=== PATIENT | female | born 1975 | race American Indian/Alaskan Native ===

== ENCOUNTER 2017-03-21 06:15 | Emergency (ER) | payer MEDICAID ==
[2017-03-21] MEDS ORDERED: TYLENOL PO ONE (06:25)
--- NOTE | 2017-03-21 07:46 | Emergency Department Report ---
ED Headache HPI - General Chief Complaint: Headache Stated Complaint: BREATHING PROBLEM Time Seen by Provider: 03/21/17 07:45 Source: patient Exam Limitations: no limitations - History of Present Illness Initial Comments: Patient here complaining of coughing 2 weeks. She says she saw her primary care doctor yesterday and he put her on antibiotic which is amoxicillin, inhaler and Motrin. She says she is still coughing and wants a breathing treatment. Denies any fever or chills. Denies any shortness of breath. Denies any nausea or vomiting. She is complaining of headache from coughing that is 10 out of 10. She said her headache comes and goes. Patient states she has a history of COPD. She denies any chest pain and reports that she's having nasal congestion. Timing/Duration: 1-3 hours, waxing and waning Quality: achy, pressure Head Injury Location: frontal Recent Head Trauma: occasional headaches (she says she gets occasional headache occasional headache on and off when she gets a cold. Denies any visual difficulties or dizziness. Eyes any neck pain or stiffness) Modifying Factors: improves with: rest Associated Symptoms: nasal congestion, nasal drainage. denies: confusion, fatigue, facial pain, fever/chills, flushing, loss of consciousness, nausea/ vomiting, numbness in legs/feet, rash, seizures, sinus infection, stiff neck, vision changes, weakness Allergies/Adverse Reactions: Allergies No Known Allergies Allergy (Verified 03/21/17 06:21) Home Medications: Ambulatory Orders Cetirizine HCl [ZyrTEC] 10 mg PO QDAY #14 capsule 03/21/17 Fluticasone [Flonase] 1 spray NS QDAY #1 bottle 03/21/17 guaiFENesin/CODEINE [Robitussin AC] 5 ml PO TID PRN #75 oral.liqd 03/21/17 traMADol [Ultram] 50 mg PO Q6HR PRN #12 tablet 03/21/17 ED Review of Systems ROS: Stated complaint: BREATHING PROBLEM Other details as noted in HPI Comment: All other systems reviewed and negative Constitutional: denies: chills, fever Eyes: denies: eye pain, eye discharge, vision change ENT: congestion. denies: ear pain, throat pain, dental pain, epistaxis Respiratory: cough. denies: shortness of breath, SOB with exertion, SOB at rest , stridor, wheezing Cardiovascular: denies: chest pain, palpitations, syncope, paroxysmal nocturnal dyspnea Gastrointestinal: denies: abdominal pain, nausea, vomiting Musculoskeletal: denies: back pain, arthralgia Skin: denies: rash Neurological: headache. denies: weakness, numbness, paresthesias, confusion, abnormal gait, vertigo ED Past Medical Hx - Past Medical History Previous Medical History?: Yes Hx COPD: Yes - Surgical History Past Surgical History?: No - Family History Family history: hypertension - Social History Smoking Status: Former Smoker Substance Use Type: None - Medications Home Medications: Home Medications Medication Instructions Recorded Confirmed Last Taken Type Cetirizine HCl [ZyrTEC] 10 mg PO QDAY #14 capsule 03/21/17 Unknown Rx Fluticasone [Flonase] 1 spray NS QDAY #1 bottle 03/21/17 Unknown Rx guaiFENesin/CODEINE [Robitussin AC] 5 ml PO TID PRN #75 oral.liqd 03/21/17 Unknown Rx traMADol [Ultram] 50 mg PO Q6HR PRN #12 tablet 03/21/17 Unknown Rx ED Physical Exam - General Limitations: No Limitations General appearance: alert, in no apparent distress - Head Head exam: Present: atraumatic, normocephalic, normal inspection - Expanded Head Exam Expanded Head exam: Absent: laceration, abrasion, contusion, hematoma, racoon eyes, talamantes's sign, general tenderness, tenderness of temporal artery, CSF rhinorrhea - Eye Eye exam: Present: normal appearance, PERRL, EOMI. Absent: scleral icterus, conjunctival injection, nystagmus, periorbital swelling, periorbital tenderness Pupils: Present: normal accommodation - ENT ENT exam: Present: normal orophraynx, mucous membranes moist, normal external ear exam, other (bilateral nasal mucosa congested with erythema and clear drainage. Maxillary and frontal sinuses nontender to palpate). Absent: TM's normal bilaterally (bilateral TMs congested without erythema) - Neck Neck exam: Present: normal inspection, full ROM. Absent: tenderness, meningismus, lymphadenopathy - Respiratory Respiratory exam: Present: normal lung sounds bilaterally, decreased breath sounds (chronic COPD). Absent: respiratory distress, wheezes, rales, rhonchi, stridor, chest wall tenderness, accessory muscle use, prolonged expiratory - Cardiovascular Cardiovascular Exam: Present: regular rate, normal rhythm, normal heart sounds - Extremities Exam Extremities exam: Present: normal inspection, full ROM, normal capillary refill. Absent: tenderness, pedal edema, joint swelling, calf tenderness - Back Exam Back exam: Present: normal inspection, full ROM. Absent: tenderness, CVA tenderness (R), CVA tenderness (L), muscle spasm, paraspinal tenderness, vertebral tenderness, rash noted - Neurological Exam Neurological exam: Present: alert, oriented X3, normal gait, reflexes normal. Absent: motor sensory deficit - Expanded Neurological Exam Expanded Neurological exam: Absent: innattentive, memory loss-remote event, memory loss- recent event, ataxia, receptive aphasia, expressive aphasia, total aphasia, tremor, protecting the airway Patient oriented to: Present: person, place, time Speech: Present: fluid speech Cranial nerves: EOM's Intact: Normal, Gag Reflex: Normal, Tongue Deviation: Normal, Nystagmus: Normal, Facial Sensation: Normal Cerebellar function: Romberg: Normal Upper motor neuron: Pronator Drift: Normal, Sensory Extinction: Normal Sensory exam: Upper Extremity Light Touch: Normal, Upper Extremity Temperature: Normal, UE 2 Point Discrimination: Normal, Lower Extremity Light Touch: Normal, Lower Extremity Temperature: Normal, LE 2 Point Discrimination: Normal Motor strength exam: RUE: 5, LUE: 5, RLE: 5, LLE: 5 DTR: bicep (R): 2+, bicep (L): 2+, tricep (R): 2+, tricep (L): 2+, knee (R): 2+ , knee (L): 2+, ankle (R): 2+, ankle (L): 2+ Best Eye Response ([place]): (4) open spontaneously Best Motor Response ([place]): (6) obeys commands Best Verbal Response ([place]): (5) oriented [place] Total: 15 - Psychiatric Psychiatric exam: Present: normal affect, normal mood - Skin Skin exam: Present: warm, dry, intact, normal color. Absent: rash ED Course Vital Signs 03/21/17 03/21/17 03/21/17 06:21 08:10 08:21 Temperature 98.8 F Pulse Rate 93 H Pulse Rate [ 90 92 H Bilateral Upper Lobe] Respiratory 18 Rate Respiratory 18 18 Rate [Bilateral Upper Lobe] Blood Pressure 117/78 O2 Sat by Pulse 100 Oximetry - Reevaluation(s) Reevaluation #1: 03/21/17 10:29 Patient given Tylenol 650 mg in triage and she does not have any headache. Patient was given xopinex/atrovent times one immunization and Deltasone 60 mg in emergency room and she says she felt better. 03/21/17 10:30 ED Medical Decision Making - Radiology Data Radiology results: report reviewed Chest x-ray revealed no acute cardiopulmonary findings. - Medical Decision Making ED course: Patient came to the ER complaining of coughing for 2 weeks and one and a breathing treatment. She also reported headache that started prior to coming to the emergency room. She says she is feeling congested and her headache is 10 out of 10. Psych pressure. She says she took Motrin with minimal relief. Patient was given Tylenol 650 mg in triage which relieved her headache. She was also given Xopenex 1.25 mg and Atrovent 0.5 mg nebulizer treatment. Patient with history of COPD and managed by her primary care doctor. Her primary care doctor gave her amoxicillin, inhaler and Motrin yesterday. I instructed patient that she needs to stop taking the Motrin as a dentist on the ground with her inhaler and I'll start her on Ultram. Patient is stable discharged home with her family with prescription for Ultram and to continue her other medication. Also I gave her prescription for cough medicine is guaifenesin with codeine, Zyrtec and Flonase. Critical care attestation.: If time is entered above; I have spent that time in minutes in the direct care of this critically ill patient, excluding procedure time. ED Disposition Clinical Impression: Cough, Upper respiratory infection, acute Disposition: DISCHARGED TO HOME OR SELFCARE Is pt being admited?: No Does the pt Need Aspirin: No Condition: Stable Instructions: Chronic Obstructive Pulmonary Disease (ED), Acute Cough (ED), Upper Respiratory Infection (ED) Additional Instructions: Please discontinue Motrin and it is contraindicated when taking in inhaler such as albuterol, regular or Ventolin. take Ultram for pain if necessary. Take guaifenesin with codeine 3 times a day for cough but please do not drive or operate heavy machinery while taking this medication as it will cause drowsiness Continue your other medications and which his inhaler and amoxicillin. Start serotactic and Flonase Upper Respiratory tract infection Prescriptions: Cetirizine HCl [ZyrTEC] 10 mg PO QDAY #14 capsule Fluticasone [Flonase] 1 spray NS QDAY #1 bottle guaiFENesin/CODEINE [Robitussin AC] 5 ml PO TID PRN #75 oral.liqd PRN Reason: Cough traMADol [Ultram] 50 mg PO Q6HR PRN #12 tablet PRN Reason: Pain Referrals: FITO MARTI MD [Primary Care Provider] - 03/24/17 Forms: Work/School Release Form(ED)
[2017-03-21] MEDS ORDERED: ATROVENT IH ONE (07:58)
[2017-03-21] MEDS ORDERED: DELTASONE PO ONE (07:58)
[2017-03-21] MEDS ORDERED: XOPENEX IH ONE (08:03)
--- NOTE | 2017-03-21 08:46 | XRay Report ---
ROUTINE CHEST, TWO VIEWS: Cough. PA and lateral views demonstrate the heart and mediastinal contour to be of normal size and shape. The lungs are clear and fully expanded and the soft tissues and bony structures are normal. IMPRESSION: Normal study.
[2017-03-21 10:53] VITALS: BP 105/66
== END 2017-03-21 10:52 | disposition home or self-care (01) ==
LOC: ED 06:15
DX: J06.9 Acute upper respiratory infection, unspecified (principal); J44.9 Chronic obstructive pulmonary disease, unspecified; Z87.891 Personal history of nicotine dependence
CPT/HCPCS: 71020; 94640; 99283; J7512

== ENCOUNTER 2017-07-17 13:39 | Emergency (ER) | payer MEDICAID ==
[2017-07-17 14:13] VITALS: BP 116/71
--- NOTE | 2017-07-17 14:47 | XRay Report ---
ROUTINE CHEST, TWO VIEWS: HISTORY: chest pain. The trachea, heart, mediastinal contour, lung nathan and bony thorax are unremarkable. IMPRESSION: Unremarkable chest x-ray. No change since 03/21/17.
[2017-07-17 15:29] LABS: Basophils % (Auto) 0.8 % (0.0-1.8); Eosinophils % (Auto) 0.5 % (0.0-4.3); Hematocrit 41.3 % (30.3-42.9); Hemoglobin 13.7 gm/dl (10.1-14.3); Mean Corpuscular HGB Conc 33 % (30-34); Mean Corpuscular Hemoglobin 27 pg (28-32); Mean Corpuscular Volume 81 fl (79-97); Platelet Count 285 K/mm3 (140-440); Red Blood Count 5.12 M/mm3 (3.65-5.03); Red Cell Distribution Width 16.9 % (13.2-15.2); White Blood Count 7.7 K/mm3 (4.5-11.0)
[2017-07-17 15:41] LABS: Chloride 96.3 mmol/L (98-107); Sodium 135 mmol/L (137-145)
[2017-07-17 15:42] LABS: Alanine Aminotransferase 9 units/L (7-56); Albumin/Globulin Ratio 1.1 %; Alkaline Phosphatase 50 units/L (35-129); Anion Gap 17 mmol/L; Blood Urea Nitrogen 7 mg/dL (7-17); Calcium 9.1 mg/dL (8.4-10.2); Carbon Dioxide 26 mmol/L (22-30); Glucose 90 mg/dL (65-100); Lipase 23 units/L (13-60); Total Protein 7.6 g/dL (6.3-8.2)
== END 2017-07-17 20:00 | disposition left against medical advice (07) ==
LOC: ED 13:39
DX: R06.00 Dyspnea, unspecified (principal); R07.89 Other chest pain; M54.9 Dorsalgia, unspecified; Z87.891 Personal history of nicotine dependence; Z53.21 Procedure and treatment not carried out due to patient leaving prior to being seen by health care provider
CPT/HCPCS: 36415; 71020; 80053; 83690; 84484; 84703; 85025; 93005; 93010

== ENCOUNTER 2018-05-19 19:37 | Emergency (ER) | payer MEDICAID ==
[2018-05-19 20:36] VITALS: BP 114/70
[2018-05-20] MEDS ORDERED: MOTRIN PO ONE (00:11)
--- NOTE | 2018-05-20 00:15 | Emergency Department Report ---
Upper Extremity - HPI Chief Complaint: Extremity Injury, Upper Stated Complaint: RT HAND PAIN Time Seen by Provider: 05/19/18 23:40 Upper Extremity: Right Hand Occurred When: >5 Days (1 month ago) Mechanism: Hit with Object Severity: moderate Symptoms: Yes Pain with Movement, Yes Limited Range of Movement, Yes Numbness, Yes Swelling, No Deformity, No Bruising/Ecchymosis, No Laceration or Abrasion Other History: 42-year-old -[place] female comes in reporting that she had injured her right hand a month ago while at work trying to push a window. Patient reports that her hand has not gotten better. She reports that she was seen at [facility] and had x-rays and taken which showed no fracture. Patient reports she's been taking ibuprofen which has not helped but she has not taken a week ago. Patient reports tingling increased pain with flexion and continue swelling at the base of the knuckle of the right middle finger. She has a past medical history of COPD. ED Review of Systems ROS: Stated complaint: RT HAND PAIN Other details as noted in HPI Musculoskeletal: joint swelling (right middle finger), arthralgia (right middle finger) ED Past Medical Hx - Past Medical History Previous Medical History?: Yes Hx COPD: Yes - Surgical History Past Surgical History?: No - Social History Smoking Status: Current Every Day Smoker Substance Use Type: Marijuana - Medications Home Medications: Home Medications Medication Instructions Recorded Confirmed Last Taken Type Cetirizine HCl [ZyrTEC] 10 mg PO QDAY #14 capsule 03/21/17 Unknown Rx Fluticasone [Flonase] 1 spray NS QDAY #1 bottle 03/21/17 Unknown Rx guaiFENesin/CODEINE [Robitussin AC] 5 ml PO TID PRN #75 oral.liqd 03/21/17 Unknown Rx Ibuprofen [Motrin 600 MG tab] 600 mg PO Q8H PRN #30 tablet 05/20/18 Unknown Rx traMADol [Ultram 50 MG tab] 50 mg PO Q6HR PRN #12 tablet 05/20/18 Unknown Rx Upper Extremity Exam - Exam General: Vital signs noted. No distress. Alert and acting appropriately. Arm Exam: No Arm/Humerus Tenderness, No Arm Deformity Elbow: No Elbow Tenderness, No Normal Range of Motion in Elbow, No Elbow Deformity Hand: Yes Hand Tenderness, Yes Hand Deformity (middle knuckle is large and tender), Yes Digit Tenderness, Yes Normal ROM in Digit(s), No Digit(s) Deformity CMS Exam: No Broken Skin, No Normal Distal Pulses, No Normal Capillary Refill, No Normal Distal Sensation ED Course Vital Signs 05/19/18 20:29 Temperature 98.5 F Pulse Rate 65 Respiratory 18 Rate Blood Pressure 114/70 O2 Sat by Pulse 97 Oximetry ED Medical Decision Making - Radiology Data Radiology results: report reviewed FINDINGS: There is no radiographic evidence of acute fracture or dislocation. Osseous mineralization is normal. Suggested mild soft tissue swelling dorsal to the metacarpophalangeal joints. On the AP projection there is probable artifact of the ulnar margin of the middle finger. No focal erosions, significant osteophyte formation or chondrocalcinosis. IMPRESSION: No acute osseous abnormality. Suggested mild dorsal soft tissue swelling at the level of the metacarpal phalangeal articulations. No significant degenerative changes or evidence of inflammatory arthropathy. Transcribed By: DT Dictated By: DORYS CONCEPCION DO Electronically Authenticated By: DORYS CONCEPCION DO Signed Date/Time: 05/20/1825 DD/ TD/TT: 05/20/1825 - Medical Decision Making Patient has been evaluated by this provider fast track. Ibuprofen 600 mg ordered for pain management. X-ray of right hand for pain and swelling. Discussed the patient to discontinue wearing the finger splint as this can be causing more pain than good. Critical care attestation.: If time is entered above; I have spent that time in minutes in the direct care of this critically ill patient, excluding procedure time. ED Disposition Clinical Impression: Hand pain, right Disposition: DC-01 TO HOME OR SELFCARE Is pt being admited?: No Does the pt Need Aspirin: No Condition: Stable Instructions: Arthralgia (ED) Additional Instructions: Medication as prescribed. Follow-up with orthopedist if symptoms persist or gets worse. There is no fracture no dislocation shown an ear x-ray. Prescriptions: Ibuprofen [Motrin 600 MG tab] 600 mg PO Q8H PRN #30 tablet PRN Reason: Pain traMADol [Ultram 50 MG tab] 50 mg PO Q6HR PRN #12 tablet PRN Reason: Pain Referrals: MYNOR CHILDS MD [Primary Care Provider] - 3-5 Days GUSTAVO JEFFERSON MD [Staff Physician] - 3-5 Days Forms: Work/School Release Form(ED)
--- NOTE | 2018-05-20 00:30 | XRay Report ---
FINAL REPORT EXAM: XR HAND 3+V RT HISTORY: right hand swelling and painful to bend TECHNIQUE: Three views of the right hand: AP, oblique and lateral projections. PRIORS: None. FINDINGS: There is no radiographic evidence of acute fracture or dislocation. Osseous mineralization is normal. Suggested mild soft tissue swelling dorsal to the metacarpophalangeal joints. On the AP projection there is probable artifact of the ulnar margin of the middle finger. No focal erosions, significant osteophyte formation or chondrocalcinosis. IMPRESSION: No acute osseous abnormality. Suggested mild dorsal soft tissue swelling at the level of the metacarpal phalangeal articulations. No significant degenerative changes or evidence of inflammatory arthropathy.
== END 2018-05-20 01:04 | disposition home or self-care (01) ==
LOC: ED 19:37
DX: M79.644 Pain in right finger(s) (principal); J44.9 Chronic obstructive pulmonary disease, unspecified; F17.200 Nicotine dependence, unspecified, uncomplicated; F12.10 Cannabis abuse, uncomplicated
CPT/HCPCS: 99283

== ENCOUNTER 2020-08-22 09:45 | Emergency (ER) | payer SELFPAY ==
[2020-08-22 10:03] VITALS: BP 116/73
--- NOTE | 2020-08-22 10:28 | XRay Report ---
XR chest routine 2V INDICATION / CLINICAL INFORMATION: cough, SOB COMPARISON: None available. FINDINGS: SUPPORT DEVICES: None. HEART / MEDIASTINUM: No significant abnormality. LUNGS / PLEURA: Lungs are clear. Costophrenic sulci are sharp. No pneumothorax. ADDITIONAL FINDINGS: No significant additional findings. IMPRESSION: 1. No acute findings. Signer Name: Gene Quintero MD Signed: 08/22/2020 10:23 AM Workstation Name: [id number]
== END 2020-08-22 13:17 | disposition left against medical advice (07) ==
LOC: ED 09:45
DX: T65.891A Toxic effect of other specified substances, accidental (unintentional), initial encounter (principal); Z53.21 Procedure and treatment not carried out due to patient leaving prior to being seen by health care provider
CPT/HCPCS: 71046

== ENCOUNTER 2020-08-22 13:35 | Emergency (ER) | payer SELFPAY ==
[2020-08-22 14:01] VITALS: BP 110/66
--- NOTE | 2020-08-22 15:05 | Emergency Department Report ---
ED General Adult HPI - General Chief complaint: Upper Respiratory Infection Stated complaint: MILDEW Time Seen by Provider: 08/22/20 14:15 Source: patient Mode of arrival: Ambulatory Limitations: No Limitations - History of Present Illness Initial comments: 45-year-old -[place] female smoker reports having a known history of COPD presents emerged department complaining of a few days of cough congestion coryza with mucus production. States that she has a known history of tobacco abuse and cannabis utilization which may be contributing but she also has moved into this new apartment around April or May which has a excessive mold infestation which she is worried may be contributing to her cough and coryza and wheezing. States that she is going to 2 inhalers much faster than she would have in the past and her symptoms do not seem to be improving unless she is out of the house. She reports no hemoptysis no hematemesis no hematochezia. No fever, chills, sweats. No nausea vomiting Improves with: none Worsens with: none Associated Symptoms: denies other symptoms Treatments Prior to Arrival: none - Related Data Previous Rx's Medication Instructions Recorded Last Taken Type Cetirizine HCl [ZyrTEC] 10 mg PO QDAY #14 capsule 03/21/17 Unknown Rx Fluticasone [Flonase] 1 spray NS QDAY #1 bottle 03/21/17 Unknown Rx guaiFENesin/CODEINE [Robitussin AC] 5 ml PO TID PRN #75 oral.liqd 03/21/17 Unknown Rx Ibuprofen [Motrin 600 MG tab] 600 mg PO Q8H PRN #30 tablet 05/20/18 Unknown Rx traMADoL [Ultram 50 MG tab] 50 mg PO Q6HR PRN #12 tablet 05/20/18 Unknown Rx Albuterol Mdi (or & Nicu Only) 1 puff IH Q4-6H PRN #1 inha 08/22/20 Unknown Rx [ProAir HFA Inhaler] Montelukast [Singulair] 10 mg PO QPM #7 tablet 08/22/20 Unknown Rx predniSONE [Deltasone] 50 mg PO QDAY #5 tab 08/22/20 Unknown Rx Allergies Allergy/AdvReac Type Severity Reaction Status Date / Time No Known Allergies Allergy Verified 03/21/17 06:21 ED Review of Systems ROS: Stated complaint: MILDEW Other details as noted in HPI Comment: All other systems reviewed and negative ED Past Medical Hx - Past Medical History Previous Medical History?: Yes Hx COPD: Yes - Social History Smoking Status: Current Every Day Smoker Substance Use Type: Marijuana - Medications Home Medications: Home Medications Medication Instructions Recorded Confirmed Last Taken Type Cetirizine HCl [ZyrTEC] 10 mg PO QDAY #14 capsule 03/21/17 Unknown Rx Fluticasone [Flonase] 1 spray NS QDAY #1 bottle 03/21/17 Unknown Rx guaiFENesin/CODEINE [Robitussin AC] 5 ml PO TID PRN #75 oral.liqd 03/21/17 Unknown Rx Ibuprofen [Motrin 600 MG tab] 600 mg PO Q8H PRN #30 tablet 05/20/18 Unknown Rx traMADoL [Ultram 50 MG tab] 50 mg PO Q6HR PRN #12 tablet 05/20/18 Unknown Rx Albuterol Mdi (or & Nicu Only) 1 puff IH Q4-6H PRN #1 inha 08/22/20 Unknown Rx [ProAir HFA Inhaler] Montelukast [Singulair] 10 mg PO QPM #7 tablet 08/22/20 Unknown Rx predniSONE [Deltasone] 50 mg PO QDAY #5 tab 08/22/20 Unknown Rx ED Physical Exam - General Limitations: No Limitations General appearance: alert, in no apparent distress - Head Head exam: Present: atraumatic, normocephalic - Eye Eye exam: Present: normal appearance, PERRL, EOMI Pupils: Present: normal accommodation - ENT ENT exam: Present: normal exam, mucous membranes moist - Neck Neck exam: Present: normal inspection - Respiratory Respiratory exam: Present: normal lung sounds bilaterally. Absent: respiratory distress - Cardiovascular Cardiovascular Exam: Present: regular rate, normal rhythm. Absent: systolic murmur, diastolic murmur, rubs, gallop - GI/Abdominal GI/Abdominal exam: Present: soft, normal bowel sounds - Extremities Exam Extremities exam: Present: normal inspection - Back Exam Back exam: Present: normal inspection - Neurological Exam Neurological exam: Present: alert, oriented X3 - Psychiatric Psychiatric exam: Present: normal affect, normal mood - Skin Skin exam: Present: warm, dry, intact, normal color. Absent: rash ED Course Vital Signs 08/22/20 14:01 Temperature 98 F Pulse Rate 61 Respiratory 16 Rate Blood Pressure 110/66 [Right] O2 Sat by Pulse 98 Oximetry ED Medical Decision Making - Radiology Data Radiology results: report reviewed X-ray shows no acute process - Medical Decision Making This patient presents with acute cough, most consistent with bronchitis. Differential diagnosis includes asthma, bronchitis, pneumonia. Presentation not consistent with acute bacterial pneumonia, influenza, asthma, transient airway hyperresponsiveness. Presentation not consistent with chronic causes of cough (including GERD, asthma, postnasal discharge, medication side effect, CHF, lung cancer or mass). Plan: CXR, supportive care, reassess Critical care attestation.: If time is entered above; I have spent that time in minutes in the direct care of this critically ill patient, excluding procedure time. ED Disposition Clinical Impression: (Ruled Out): Bronchitis Disposition: DC-01 TO HOME OR SELFCARE Is pt being admited?: No Does the pt Need Aspirin: No Condition: Stable Prescriptions: predniSONE [Deltasone] 50 mg PO QDAY #5 tab Albuterol Mdi (or & Nicu Only) [ProAir HFA Inhaler] 1 puff IH Q4-6H PRN #1 inha PRN Reason: Cough Montelukast [Singulair] 10 mg PO QPM #7 tablet Referrals: [facility] [Provider Group] - 3-5 Days
== END 2020-08-22 16:08 | disposition home or self-care (01) ==
LOC: ED 13:35
DX: J44.9 Chronic obstructive pulmonary disease, unspecified (principal); F17.200 Nicotine dependence, unspecified, uncomplicated; F12.90 Cannabis use, unspecified, uncomplicated; Z79.899 Other long term (current) drug therapy
CPT/HCPCS: 99281

== ENCOUNTER 2021-01-14 16:27 | Emergency (ER) | payer SELFPAY ==
[2021-01-14 16:40] VITALS: BP 107/64
--- NOTE | 2021-01-14 17:50 | Emergency Department Report ---
ED Rash HPI - HPI Chief Complaint: Skin Rash Stated Complaint: PSORIASIS ALL OVER Time Seen by Provider: 01/14/21 16:52 Duration: 1 Day Location: Neck, Chest, Back Suspected Cause: Unknown Rash Symptoms: No Itching, No Facial Swelling, No Tongue/Oral Swelling, No Breathing Difficulties, No Choking Sensation, No Wheezing/Dyspnea, No Peeling, No Blistering, No Fever, No Lightheaded, No Malaise, No Myalgias Other History: This is a 45-year-old female with history of psoriasis nontoxic, well nourished in appearance, no acute signs of distress presents to the ED with c/o of intermittent itching sensation with scaly rash. Last known was last night. Patient stated symptoms of rash and itching has resolved but wanted to get physically examined. Patient denies any drooling, hoarseness or facial swelling. Patient denies any trauma. She denies any fever, chills, nausea, vomiting, chest pain, shortness of breath, headache, stiff neck, numbness or tingling. Patient denies any drug allergies. ED Review of Systems ROS: Stated complaint: PSORIASIS ALL OVER Other details as noted in HPI Comment: All other systems reviewed and negative Constitutional: denies: chills, fever Eyes: denies: eye pain, eye discharge, vision change ENT: denies: ear pain, throat pain Respiratory: denies: cough, shortness of breath, wheezing Cardiovascular: denies: chest pain, palpitations Endocrine: no symptoms reported Gastrointestinal: denies: abdominal pain, nausea, diarrhea Genitourinary: denies: urgency, dysuria, discharge Musculoskeletal: denies: back pain, joint swelling, arthralgia Skin: denies: rash, lesions Neurological: denies: headache, weakness, paresthesias Psychiatric: denies: anxiety, depression Hematological/Lymphatic: denies: easy bleeding, easy bruising ED Past Medical Hx - Past Medical History Previous Medical History?: Yes Hx COPD: Yes - Surgical History Past Surgical History?: Yes - Social History Smoking Status: Never Smoker Substance Use Type: None - Medications Home Medications: Home Medications Medication Instructions Recorded Confirmed Last Taken Type Cetirizine HCl [ZyrTEC] 10 mg PO QDAY #14 capsule 03/21/17 Unknown Rx Fluticasone [Flonase] 1 spray NS QDAY #1 bottle 03/21/17 Unknown Rx guaiFENesin/CODEINE [Robitussin AC] 5 ml PO TID PRN #75 oral.liqd 03/21/17 Unknown Rx Ibuprofen [Motrin 600 MG tab] 600 mg PO Q8H PRN #30 tablet 05/20/18 Unknown Rx traMADoL [Ultram 50 MG tab] 50 mg PO Q6HR PRN #12 tablet 05/20/18 Unknown Rx Albuterol Mdi (or & Nicu Only) 1 puff IH Q4-6H PRN #1 inha 08/22/20 Unknown Rx [ProAir HFA Inhaler] Montelukast [Singulair] 10 mg PO QPM #7 tablet 08/22/20 Unknown Rx predniSONE [Deltasone] 50 mg PO QDAY #5 tab 08/22/20 Unknown Rx Rash Exam - Exam General: Vital signs noted. No distress. Alert and acting appropriately. HEENT: No Periorbital Edema, No Conjuctival Injection, No Chemosis, No Perioral Edema, No Tongue Edema, No Uvular Edema, No Compromised Airway, No Drooling Lungs: Yes Good Air Exchange (Normal Breath Sounds), No Wheezes, No Ronchi, No Stridor, No Cough, No Labored Respirations, No Retractions, No Use of Accessory Muscles, No Other Abnormal Lung Sounds Heart: Yes Regular, No Murmur Skin: No Urticarial Rash, No Maculopapular Rash, No Morbilliform rash, No Bulla(e), No Excoriations, No Weeping, No Tenderness, No Erythema, No Edema, No Encrustations, No Other Other: Positive: Abdomen Normal, Neurologic Normal, Musculoskeletal Normal ED Course Vital Signs 01/14/21 16:35 Temperature 98.2 F Pulse Rate 71 Respiratory 16 Rate Blood Pressure 107/64 [Left] O2 Sat by Pulse 95 Oximetry - Reevaluation(s) Reevaluation #1: 01/14/21 17:48 Patient is speaking in full sentences with no signs of distress noted. ED Medical Decision Making - Medical Decision Making This is a 45-year-old female that presents with medical exam. Patient is stable was examined by me. Exam is unremarkable with no rash noted. There is no facial swelling. No angioedema. There is no cellulitis. No hoarseness. Patient was referred to Follow-up with a primary care and housing director doctor in 3-5 days or if symptoms worsen and continue return to emergency room as soon as possible. At time of discharge, the patient does not seem toxic or ill in appearance. No acute signs of distress noted. Patient agrees to discharge treatment plan of care. No further questions noted by the patient. Critical care attestation.: If time is entered above; I have spent that time in minutes in the direct care of this critically ill patient, excluding procedure time. ED Disposition Clinical Impression: Rash, General medical exam Disposition: MED SCREENING EXAM-LEFT Is pt being admited?: No Does the pt Need Aspirin: No Condition: Stable Additional Instructions: Follow-up with a primary care and housing director doctor in 3-5 days or if symptoms worsen and continue return to emergency room as soon as possible. Referrals: MYNOR CHILDS MD [Primary Care Provider] - 3-5 Days SOLANGE BLETRAN MD [Staff Physician] - 3-5 Days Time of Disposition: 17:50
== END 2021-01-14 17:57 | disposition left against medical advice (07) ==
LOC: ED 16:27
DX: L40.9 Psoriasis, unspecified (principal); Z53.21 Procedure and treatment not carried out due to patient leaving prior to being seen by health care provider

== ENCOUNTER 2021-08-31 13:58 | Emergency (ER) | payer SELFPAY ==
[2021-08-31 14:05] VITALS: BP 122/73
[2021-08-31 16:43] LABS: Bacteria,Urine 4+ /HPF (Negative); Bilirubin,Urine NEG (Negative); Blood,Urine NEG (Negative); Color,Urine Yellow (Yellow); Mucus,Urine 2+ /HPF
--- NOTE | 2021-08-31 16:50 | Emergency Department Report ---
ED General Adult HPI - General Chief complaint: Urogenital-Female Stated complaint: BLADDER INFECTION Time Seen by Provider: 08/31/21 15:10 Source: patient Mode of arrival: Ambulatory Limitations: No Limitations - History of Present Illness Initial comments: 46-year-old -[place] female patient with history of asthma presents with complaints of dysuria, cloudy urine, and urinary frequency times the past few days. She states a history of recurrent UTIs and states she gets them every 3 to 4 months for the past 20 years. Patient states she has been referred to urology, however she has not followed up. She denies any hematuria, flank pain, fever/chills/sweats. She admits to mild intermittent lower abdominal pain. No vaginal discharge, vaginal bleeding, or dyspareunia per patient. No other past medical history per patient. - Related Data Previous Rx's Medication Instructions Recorded Last Taken Type Cetirizine HCl [ZyrTEC] 10 mg PO QDAY #14 capsule 03/21/17 Unknown Rx Fluticasone [Flonase] 1 spray NS QDAY #1 bottle 03/21/17 Unknown Rx guaiFENesin/CODEINE [Robitussin AC] 5 ml PO TID PRN #75 oral.liqd 03/21/17 Unknown Rx Ibuprofen [Motrin 600 MG tab] 600 mg PO Q8H PRN #30 tablet 05/20/18 Unknown Rx traMADoL [Ultram 50 MG tab] 50 mg PO Q6HR PRN #12 tablet 05/20/18 Unknown Rx Albuterol Mdi (or & Nicu Only) 1 puff IH Q4-6H PRN #1 inha 08/22/20 Unknown Rx [ProAir HFA Inhaler] Montelukast [Singulair] 10 mg PO QPM #7 tablet 08/22/20 Unknown Rx predniSONE [Deltasone] 50 mg PO QDAY #5 tab 08/22/20 Unknown Rx Ciprofloxacin HCl 500 mg PO BID 5 Days #10 tablet 08/31/21 Unknown Rx Fluconazole [Diflucan TAB] 200 mg PO QDAY PRN #1 tablet 08/31/21 Unknown Rx Allergies Allergy/AdvReac Type Severity Reaction Status Date / Time No Known Allergies Allergy Verified 03/21/17 06:21 ED Review of Systems ROS: Stated complaint: BLADDER INFECTION Other details as noted in HPI Constitutional: denies: chills, fever, malaise Gastrointestinal: as per HPI. denies: nausea, vomiting Genitourinary: urgency, dysuria, frequency. denies: hematuria, discharge, abnormal menses, dyspareunia Musculoskeletal: denies: back pain ED Past Medical Hx - Past Medical History Hx COPD: Yes - Social History Smoking Status: Never Smoker Substance Use Type: None - Medications Home Medications: Home Medications Medication Instructions Recorded Confirmed Last Taken Type Cetirizine HCl [ZyrTEC] 10 mg PO QDAY #14 capsule 03/21/17 Unknown Rx Fluticasone [Flonase] 1 spray NS QDAY #1 bottle 03/21/17 Unknown Rx guaiFENesin/CODEINE [Robitussin AC] 5 ml PO TID PRN #75 oral.liqd 03/21/17 Unknown Rx Ibuprofen [Motrin 600 MG tab] 600 mg PO Q8H PRN #30 tablet 05/20/18 Unknown Rx traMADoL [Ultram 50 MG tab] 50 mg PO Q6HR PRN #12 tablet 05/20/18 Unknown Rx Albuterol Mdi (or & Nicu Only) 1 puff IH Q4-6H PRN #1 inha 08/22/20 Unknown Rx [ProAir HFA Inhaler] Montelukast [Singulair] 10 mg PO QPM #7 tablet 08/22/20 Unknown Rx predniSONE [Deltasone] 50 mg PO QDAY #5 tab 08/22/20 Unknown Rx Ciprofloxacin HCl 500 mg PO BID 5 Days #10 tablet 08/31/21 Unknown Rx Fluconazole [Diflucan TAB] 200 mg PO QDAY PRN #1 tablet 08/31/21 Unknown Rx ED Physical Exam - General Limitations: No Limitations General appearance: alert, in no apparent distress - Head Head exam: Present: atraumatic, normocephalic - Eye Eye exam: Present: normal appearance. Absent: scleral icterus - Respiratory Respiratory exam: Present: normal lung sounds bilaterally. Absent: respiratory distress - Cardiovascular Cardiovascular Exam: Present: regular rate - GI/Abdominal GI/Abdominal exam: Present: soft, normal bowel sounds. Absent: distended, tenderness, guarding, rebound, rigid - Back Exam Back exam: Absent: CVA tenderness (R), CVA tenderness (L) - Neurological Exam Neurological exam: Present: alert, oriented X3, normal gait - Psychiatric Psychiatric exam: Present: normal affect, normal mood - Skin Skin exam: Present: warm, dry, intact, normal color. Absent: rash ED Course Vital Signs 08/31/21 14:04 Temperature 98.3 F Pulse Rate 67 Respiratory 18 Rate Blood Pressure 122/73 O2 Sat by Pulse 99 Oximetry ED Medical Decision Making - Medical Decision Making 46-year-old -[place] female patient with history of asthma presents with complaints of dysuria, cloudy urine, and urinary frequency times the past few days. She states a history of recurrent UTIs and states she gets them every 3 to 4 months for the past 20 years. Patient states she has been referred to urology, however she has not followed up. She denies any hematuria, flank pain, fever/chills/sweats. She admits to mild intermittent lower abdominal pain. No vaginal discharge, vaginal bleeding, or dyspareunia per patient. No other past medical history per patient. UA shows 15 WBCs. Patient states she was treated with Macrobid 2 to 3 months ago for UTI. Will treat with Cipro given recurrence of UTIs. Patient to follow-up with urology in 3 to 5 days for further evaluation. She is otherwise well-appearing, her vitals are normal, she is stable for discharge home. Discussed in detail signs symptoms that should prompt immediate return to the ED with patient verbalizes understanding. Critical care attestation.: If time is entered above; I have spent that time in minutes in the direct care of this critically ill patient, excluding procedure time. ED Disposition Clinical Impression: UTI (urinary tract infection) Disposition: HOME / SELF CARE / HOMELESS Is pt being admited?: No Condition: Stable Instructions: Urinary Tract Infection, Adult, [id number] Additional Instructions: Follow-up with your urologist Prescriptions: Ciprofloxacin HCl 500 mg PO BID 5 Days #10 tablet Fluconazole [Diflucan TAB] 200 mg PO QDAY PRN #1 tablet PRN Reason: yeast infection Referrals: SURENDRA HAWK MD [Staff Physician] - 3-5 Days
== END 2021-08-31 17:43 | disposition home or self-care (01) ==
LOC: ED 13:58
DX: N39.0 Urinary tract infection, site not specified (principal); J44.9 Chronic obstructive pulmonary disease, unspecified
CPT/HCPCS: 81001; 87076; 87086; 87186; 99283